=== PATIENT | female | born 1990 | race Caucasian/White ===

== ENCOUNTER 2017-07-16 16:53 | Emergency (ER) | payer SELFPAY ==
[2017-07-16 17:37] VITALS: RESP 16
--- NOTE | 2017-07-16 17:58 | EDPHY ---
H & P Stated Complaint: SI - abrasion to wrist 2 nights ago. Time Seen by Provider: 07/16/17 17:57 HPI/ROS: CHIEF COMPLAINT: Depression, suicidal thoughts HISTORY OF PRESENT ILLNESS: The patient presents to the ED with complaints of depression and suicidal thoughts. The patient reports she has been using alcohol. She did engage in some superficial cutting to nights ago. The patient presents to the ED because she does not feel that she is safe. The patient denies an obvious precipitant to the symptoms. The patient does have a history of suicide attempt in 2014. The patient takes no current psychiatric medications. She does not have a therapist or psychiatrist. REVIEW OF SYSTEMS: A comprehensive 10 point review of systems is otherwise negative aside from elements mentioned in the history of present illness. Source: Patient - Personal History LMP (Females 10-55): Unknown Current Tetanus/Diphtheria Vaccine: Yes Current Tetanus Diphtheria and Acellular Pertussis (TDAP): Yes Tetanus Vaccine Date: 12/2014 - Medical/Surgical History Hx Asthma: No Hx Chronic Respiratory Disease: No Hx Diabetes: No Hx Cardiac Disease: No Hx Renal Disease: No Hx Cirrhosis: No Hx Alcoholism: No Hx HIV/AIDS: No Hx Splenectomy or Spleen Trauma: No Other PMH: CHRONIC BACK PAIN, suicide attempt 02/02 - Social History Smoking Status: Current every day smoker - Physical Exam Exam: General Appearance: Alert, tearful, no acute distress Eyes: Pupils equal and round no pallor or injection ENT, Mouth: Mucous membranes moist Respiratory: There are no retractions, lungs are clear to auscultation Cardiovascular: Regular rate and rhythm Gastrointestinal: Abdomen is soft and nontender, no masses, bowel sounds normal Neurological: A&O, normal motor function, normal sensory exam, normal cranial nerves Skin: Superficial cutting marked noted to the left upper extremity Musculoskeletal: Neck is supple nontender Extremities: symmetrical, full range of motion Psychiatric: Tearful, endorses suicidal ideation, depressed Constitutional: Initial Vital Signs Temperature (C) 36.6 C 07/16/17 17:34 Heart Rate 111 H 07/16/17 17:34 Respiratory Rate 16 07/16/17 17:34 Blood Pressure 133/51 H 07/16/17 17:34 O2 Sat (%) 98 07/16/17 17:34 O2 Delivery Mode Room Air Allergies/Adverse Reactions: No Known Allergies Allergy (Unverified 05/28/13 13:25) Home Medications: Medication Instructions Recorded Tramadol HCl 02/04/15 Medical Decision Making ED Course/Re-evaluation: The patient presents to the ED with suicidal thoughts. The patient has a history of alcohol dependence. She did engage in some cutting behavior several days ago. Patient was placed on a detain or by myself. She was evaluated by the psychiatric service here [facility]. The case was discussed with Dr. Brendan Hollingsworth. Collateral information was obtained from the patient's father. At midnight, the patient is lizz for safety would like to be discharged home. The patient has issues of depression and suicidal thoughts around her alcohol dependence and some legal troubles as a result of this condition. The patient can contract for safety and has requested outpatient resources. She would like to be discharged home and will return to the ER for the development of any worsening symptoms or other concerns. Differential Diagnosis: Differential diagnosis considered includes alcohol intoxication, psychosis, suicidal ideation, depression - Data Points Laboratory Results: Laboratory Results 07/16/17 18:05 07/16/17 18:05 07/16/17 07/16/17 07/16/17 18:05 18:05 17:34 WBC 10.40 10^3/uL H 10^3/uL (3.80-9.50) RBC 5.24 10^6/uL 10^6/uL (4.18-5.33) Hgb 15.9 g/dL g/dL (12.6-16.3) Hct 46.3 % % (38.0-47.0) MCV 88.4 fL fL (81.5-99.8) MCH 30.3 pg pg (27.9-34.1) MCHC 34.3 g/dL g/dL (32.4-36.7) RDW 13.7 % % (11.5-15.2) Plt Count 309 10^3/uL 10^3/uL (150-400) MPV 9.5 fL fL (8.7-11.7) Neut % (Auto) 51.2 % % (39.3-74.2) Lymph % (Auto) 42.1 % % (15.0-45.0) [place] % (Auto) 5.8 % % (4.5-13.0) Eos % (Auto) 0.3 % L % (0.6-7.6) Baso % (Auto) 0.4 % % (0.3-1.7) Nucleat RBC Rel Count 0.0 % % (0.0-0.2) Absolute Neuts (auto) 5.33 10^3/uL 10^3/uL (1.70-6.50) Absolute Lymphs (auto) 4.38 10^3/uL H 10^3/uL (1.00-3.00) Absolute Monos (auto) 0.60 10^3/uL 10^3/uL (0.30-0.80) Absolute Eos (auto) 0.03 10^3/uL 10^3/uL (0.03-0.40) Absolute Basos (auto) 0.04 10^3/uL 10^3/uL (0.02-0.10) Absolute Nucleated RBC 0.00 10^3/uL 10^3/uL (0-0.01) Immature Gran % 0.2 % % (0.0-1.1) Immature Gran # 0.02 10^3/uL 10^3/uL (0.00-0.10) Sodium 151 mEq/L H mEq/L (135-145) Potassium 3.9 mEq/L mEq/L (3.5-5.2) Chloride 107 mEq/L mEq/L (97-110) Carbon Dioxide 20 mEq/l L mEq/l (22-31) Anion Gap 24 mEq/L H mEq/L (8-16) BUN 10 mg/dL mg/dL (7-23) Creatinine 0.6 mg/dL mg/dL (0.6-1.0) Estimated GFR > 60 Glucose 79 mg/dL mg/dL (70-100) Calcium 9.6 mg/dL mg/dL (8.5-10.4) Urine Opiates Screen NEGATIVE (NEGATIVE) Urine Barbiturates NEGATIVE (NEGATIVE) Ur Phencyclidine Scrn NEGATIVE (NEGATIVE) Ur Amphetamine Screen NEGATIVE (NEGATIVE) U Benzodiazepines Scrn NEGATIVE (NEGATIVE) Urine Cocaine Screen NON-NEGATIVE H (NEGATIVE) U Marijuana (THC) Screen NEGATIVE (NEGATIVE) Ethyl Alcohol 259 mg/dL H mg/dL (0-10) Medications Given: Discontinued Medications Acetaminophen (Tylenol) 650 mg PO EDNOW ONE Stop: 07/16/17 21:44 Last Admin: 07/16/17 21:48 Dose: 650 mg Ibuprofen (Motrin) 400 mg PO EDNOW ONE Stop: 07/16/17 21:44 Last Admin: 07/16/17 21:47 Dose: 400 mg Departure - Departure Disposition: Home, Routine, Self-Care Clinical Impression: Suicidal ideation, Alcoholism Condition: Good Instructions: Alcohol Dependence (ED) Additional Instructions: 1. Please follow-up with the mental health resources provided in the ED today. 2. [facility] does operate a 11/12 psychiatric crisis unit located at [address] [place] [address]. The telephone number for the 24 hour crisis center is [phone]. 3. Please return to the ED if you are feeling suicidal, having thoughts of harming yourself/others or should you feel unsafe or have worsening symptoms. Referrals: Tika Dubose MD [Primary Care Provider] - As per Instructions
[2017-07-16 18:10] LABS: PLATELET COUNT 309 10^3/uL (150-400)
[2017-07-16] MEDS ORDERED: IBUPROFEN 200 MG TAB PO ONE (21:43)
[2017-07-16] MEDS ORDERED: ACETAMINOPHEN 325 MG TAB PO ONE (21:43)
[2017-07-17 00:26] VITALS: TEMP 98.2; O2SAT 93
[2017-07-17 00:28] VITALS: BP 106/63; PULSE 105
== END 2017-07-17 00:26 | disposition home or self-care (01) ==
DX: S60.512A Abrasion of left hand, initial encounter (principal); F17.200 Nicotine dependence, unspecified, uncomplicated; F10.10 Alcohol abuse, uncomplicated; X83.8XXA Intentional self-harm by other specified means, initial encounter
CPT/HCPCS: 80305; G0480

== ENCOUNTER 2018-10-12 10:53 | Emergency (ER) | payer MEDICAID ==
[2018-10-12 11:00] VITALS: BP 109/62
--- NOTE | 2018-10-12 11:05 | EDPHY ---
H & P Stated Complaint: Right arm pain, starts behind shoulder and has shooting pain down to finger Time Seen by Provider: 10/12/18 11:03 HPI/ROS: HPI: This is a 28-year-old female who presents with Chief Complaint: Right arm pain, starts behind shoulder and has shooting pain down to finger Location: Right upper back behind the shoulder Quality: Shooting pain Duration: 1 day Signs and Symptoms: No bleeding, + radiation, no numbness, no weakness, no tingling, no incontinence, + decreased range of motion, no swelling, + pain, no fever, no headache Timing: Acute Severity: Moderate Context: Patient is right-hand dominant, presents with complaints of right arm pain that starts behind shoulder near the scapula and shoots down into her right index finger over the last 24 hr. 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 She was unable to go to work today due to the pain. She is currently 33 weeks and has not taking any [id number] medications. She denies actual injury or trauma. She has no vaginal bleeding or vaginal discharge. She denies any abdominal pain. Modifying Factors: No [id number] medications tried Comment: ROS: A comprehensive 10 system review of systems is otherwise negative aside from elements mentioned in the history of present illness. MEDICAL/SURGICAL/SOCIAL HISTORY: Medical history: CHRONIC BACK PAIN, suicide attempt 02/02 Surgical history: Denies Social history: Current every day smoker. 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 CONSTITUTIONAL: Overweight, adult white female, awake and alert, no obvious distress HEENT: Atraumatic and normocephalic, PERRL, EOMI. Nares patent; no rhinorrhea; no nasal mucosal edema. Tympanic membranes clear. Oropharynx clear, no exudate and moist pink mucosa. Airway patent. No lymphadenopathy. NECK: supple, no midline tenderness, flexion 45 degrees, extension 45 degrees, right and left lateral flexion 45 degrees. Cardiovascular: Normal S1/S2, regular rate, regular rhythm, without murmur rub or gallop. PULMONARY/CHEST: Symmetrical and nontender. Clear to auscultation bilaterally. Good air movement. No accessory muscle usage. ABDOMEN: Soft, gravid, nondistended, nontender, no rebound, no guarding, no peritoneal signs, no masses or organomegaly. No CVAT. BACK: Reproducible pain on the trapezius muscle near the medial portion of the scapula in multiple trigger points. No midline tenderness, no paraspinous spasm , deep tendon reflexes 2/2, no pain with straight leg raise, No foot drop. Achilles reflexes are equal bilaterally. EXTREMITIES: 2/2 pulses, strength 5/5, right SHOULDER: Arc test abduction to 180, abduction to 45, horizontal flexion 130, horizontal extension to 45, deltoid strength 5/5. No pain with Neer test/Ya test (impingement). No Tenderness to palpation over AC joint. no clavicle deformity appreciated. no deformities, no clubbing, no cyanosis or edema. NEUROLOGICAL: no focal neuro deficits. GCS 15. SKIN: Warm and dry, no erythema. no rash. Good capillary refill. Source: Patient Exam Limitations: No limitations - Personal History LMP (Females 10-55): Tetanus Vaccine Date: 12/2014 - Medical/Surgical History Hx Asthma: No Hx Chronic Respiratory Disease: No Hx Diabetes: No Hx Cardiac Disease: No Hx Renal Disease: No Hx Cirrhosis: No Hx Alcoholism: No Hx HIV/AIDS: No Hx Splenectomy or Spleen Trauma: No Other PMH: CHRONIC BACK PAIN, suicide attempt 02/02 - Social History Smoking Status: Current every day smoker Constitutional: Initial Vital Signs Temperature (C) 37 C 10/12/18 10:56 Heart Rate 94 10/12/18 10:56 Respiratory Rate 16 10/12/18 10:56 Blood Pressure 109/62 10/12/18 10:56 O2 Sat (%) 97 10/12/18 10:56 O2 Delivery Mode Room Air Allergies/Adverse Reactions: No Known Allergies Allergy (Unverified 10/15/12 13:25) Home Medications: Medication Instructions Recorded Tramadol HCl 02/04/15 Lidocaine [Lidoderm] 1 each TP Q12 PRN #6 adh..patch 10/12/18 Medical Decision Making ED Course/Re-evaluation: Vital signs reviewed and stable upon arrival. Patient is 33 weeks and I do not believe x-ray imaging radiation outweighs the benefits at this time. This appears to be muscular strain in nature primarily at the trapezius muscle near the scapula. No neurological deficits to warrant emergent MRI Given sling per patient request and Lidoderm patch applied No signs of neurovascular compromise/tenting of skin/compartment syndrome/ extremities and joints examined above and below area of concern and are neurovascularly intact. This patient was seen under the supervision of my secondary supervising physician. I evaluated and cared for this patient independently. Differential Diagnosis: Shoulder injury differential diagnosis includes but is not limited to clavicle fracture, contusion, AC joint separation, rotator cuff injury, labral tear, humeral head fracture, sprain, scapula fracture. Departure - Departure Disposition: Home, Routine, Self-Care Clinical Impression: Strain of right trapezius muscle Qualifiers: Encounter type: initial encounter Qualified Code(s): S46.811A - Strain of other muscles, fascia and tendons at shoulder and upper arm level, right arm, initial encounter Condition: Good Instructions: Muscle Strain (ED) Additional Instructions: Wear the sling while out of bed until pain free. Take Tylenol 650 mg every 4 hours as needed for pain. Apply heating pad for 30 minutes at a time; 2-3 times per day for the next 1-2 days. Referrals: [facility],. [Clinic] - 5-7 days, if not improved Stand Alone Forms: Work Excuse Prescriptions: Lidocaine [Lidoderm] 1 each TP Q12 PRN #6 adh..patch PRN Reason: Pain, Moderate
[2018-10-12] MEDS ORDERED: LIDOCAINE 4%/MENTHOL 1% PATCH TD ONE ×2 (11:10→11:17)
[2018-10-12] MEDS ORDERED: PATCH REMOVAL 1 EA PATCH TD SCH (21:00)
== END 2018-10-12 11:22 | disposition home or self-care (01) ==
DX: S46.811A Strain of other muscles, fascia and tendons at shoulder and upper arm level, right arm, initial encounter (principal); Z3A.33 33 weeks gestation of pregnancy; X50.3XXA Overexertion from repetitive movements, initial encounter; Y99.0 Civilian activity done for income or pay
CPT/HCPCS: A4565

== ENCOUNTER 2018-10-18 09:17 | Observation (INO) | payer MEDICAID | END 2018-10-18 10:45 | disposition home or self-care (01) | LOC: FLD 09:17 | PROVIDERS: ADMIT Obstetrics & Gynecology; ATTEND Obstetrics & Gynecology | DX: O99.89 Other specified diseases and conditions complicating pregnancy, childbirth and the puerperium (principal); R10.2 Pelvic and perineal pain; Z3A.34 34 weeks gestation of pregnancy ==

== ENCOUNTER 2018-10-23 21:27 | Emergency (ER) | payer MEDICAID | END 2018-10-23 22:01 | disposition home or self-care (01) ==